=== PATIENT | female | born 1980 | race Caucasian/White ===

== ENCOUNTER 2018-03-24 10:21 | Emergency (ER) | payer OTHER ==
--- OUTSIDE RECORDS SUMMARY | 2018-03-24 10:28 | XMS REPORT ---
:1980 External Reference #:[id number] Author Organization Advanced project portfolio analyst [facility] Address [address] [place] [id number] Phone [phone] Care Team Providers Name Role Phone Ger Barton M.D. Care Team Information Manager Of Drilling Unavailable Payers Type Date Identification Numbers Payment Provider Subscriber Commercial Policy Number: [id number] [employer] Number: [id number] [address] PayID: [id number] [place] [address] Problems Description No Information Family History Date Family Member(s) Problem(s) Comments General Non Contributory Social History Type Date Description Comments Cigarette Use Never Smoked Cigarettes Allergies, Adverse Reactions, Alerts Date Description Reaction Status Severity Comments 12/15/2015 Seasonal Allergic asthma active Medications Medication Date Status Form Strength Qnty SIG Indications Ordering Provider Nasonex / Active Suspension 50mcg/Act 2x daily Unknown 0000 during allergy season (spring and fall) Montelukast / Active Tablets 10mg 1x daily Unknown Sodium 0000 spring through first of fall Align / Active Unknown 0000 Fluoxetine HCL / Active Capsules 20mg Take One Unknown 0000 Capsule By Mouth Every Day Percocet 12/29/ Hx Tablets 5-325mg 30tabs 1 by Ger Stein 01/26/ every 4 M.D. 2016 hours as needed pain Vital Signs Date Vital Result Comment 03/07/2018 BP Systolic 122 mmHg BP Diastolic 78 mmHg Height 65.5 inches 5'5.50" Weight 226.00 lb BMI (Body Mass Index) 37.0 kg/m2 02/22/2017 BP Systolic 118 mmHg BP Diastolic 82 mmHg Height 65.5 inches 5'5.50" Weight 213.38 lb BMI (Body Mass Index) 35.0 kg/m2 01/27/2016 BP Systolic 118 mmHg BP Diastolic 82 mmHg Height 65.5 inches 5'5.50" Weight 208.50 lb BMI (Body Mass Index) 34.2 kg/m2 12/18/2015 BP Systolic 108 mmHg BP Diastolic 72 mmHg Height 65.5 inches 5'5.50" Weight 205.00 lb BMI (Body Mass Index) 33.6 kg/m2 Results Test Date Test Result H/L Range Note Laboratory test 03/07/2018 Thinprep W/High <pending> finding Risk HPV Laboratory test 01/04/2016 Histology [place] [address] finding <SEE NOTE> CBC Without Diff 12/30/2015 WBC 8.4 10*3/uL (4.1-11.0) RBC 4.34 10*6/uL (4.00-5.40) HGB 13.5 g/dL (12.0-16.0) HCT 40.8 % (36.0-47.0) MCV 94.1 fL (80.0-95.0) MCH 31.1 pg (27.0-32.0) MCHC 33.0 g/dL (32.0-36.0) RDW 12.8 % (10.5-14.5) PLT 279 10*3/uL (150-450) MPV 9.6 fL (7.1-10.7) Laboratory test finding 12/30/2015 HCG, Qual. Serum NEGATIVE (Neg) [address] [place] [address] Surgical Pathology Report SPECIMEN(S) RECEIVED: A: Endometrial curettings CLINICAL DIAGNOSIS AND HISTORY: Pelvic and perineal pain. Excessive bleeding in premenopausal period. GROSS DESCRIPTION: Specimen received in formalin labeled "endometrial curettings" is a 2.7 x 1.9 x 0.4 cm aggregate of multiple irregular rodriguez-red soft tissue fragments and dark red clotted blood. The specimen is filtered through a biopsy bag and entirely submitted in one cassette. DIAGNOSIS: DESIGNATED ENDOMETRIAL CURETTINGS: Late secretory endometrium. Multiple levels examined. Processed at [facility], Histopathology, [address], [place], [address]. Reported at [facility] at [facility], [address] [place] [address], [address]. As applicable, positive and negative controls for all immunohistochemical and/or special stains were reviewed and considered appropriate. Reported: 01/05/2016 Electronically Signed Out By Fercho Blackwell M.D. [facility], P.CDanyel allen This report may include one or more immunohistochemical or in-situ hybridization results. Testing has been developed and the performance characteristics were determined by [facility] as required by CLIA '88 regulations. The tests may not have been approved for a given specific use by the [place] Food and Drug Administration, but the FDA has determined that such approval is not necessary for clinical use Procedures Date CPT Code Description Status 01/04/2016 56507 Laparoscopy Lysis Of Adhesions Completed 01/04/2016 78654 Hysteroscopy:Surgical With BX Of Completed Endometrium,Polypectomy W/Wo D&C Encounters Type Date Location Provider CPT E/M Dx Office Visit 02/22/2017 2:30p Main Office Ger Barton M.D. 93755 Z01.419 Office Visit 12/18/2015 2:10p [place] Ger Barton M.D. 76006 R10.2 N92.0 Plan of Care Future Appointment(s):03/13/2019 2:20 pm - Ger Barton M.D. at Main [facility]u7503/07/2018 - Ger Barton M.D.Z01.419 Encntr for hand packer exam (general) ( routine) w/o abn findingsComments:Risks, benefits & alternatives fully discussed with patient regarding treatment plan/options -(Test scheduled/ recommended and any medications prescribed). Patient fully understood and accepts. All questions answered to the best of my ability.Z12.12 Encounter for screening for malignant neoplasm of rectumComments:Importance of self breast exam. Explained and taught.
[2018-03-24 10:43] VITALS: BP 113/79
--- NOTE | 2018-03-24 11:30 | UC ---
Abdominal Pain Female HPI - HPI Summary HPI Summary: The patient is a 37-year-old female that has had intermittent abdominal problems since a visit to the [facility] in June 2017. Since that initial visit she has also been to [place]. She states that almost daily she has had diarrhea. She returned from the [facility] she did see her doctor and did have stool studies done. Apparently no pathogen was found. She has not been on any antibiotics recently. Patient currently chronic intermittent diarrhea she has had episodes of nausea and vomiting. She denies any fevers. Intermittently since June of last year she has had right lower quadrant abdominal pain that is brought on by eating. This pain can last minutes to hours. She has had no weight loss. She had her gallbladder removed years ago. - History of Current Complaint Chief Complaint: UCAbdominalPain Stated Complaint: ABD PAIN, VOMITTING Time Seen by Provider: 03/24/18 11:10 Hx Obtained From: Patient Hx Last Menstrual Period: 03/03/18 Onset/Duration: Gradual Onset, Lasting Weeks - months Timing: Intermittent Episodes Lasting: - hours Severity Initially: Moderate Severity Currently: Mild Pain Intensity: 3 Pain Scale Used: 0-10 Numeric Location: Discrete At: RLQ Character: Cramping Aggravating Factor(s): Food Associated Signs and Symptoms: Positive: Nausea, Vomiting, Diarrhea Allergies/Adverse Reactions: Allergies Allergy/AdvReac Type Severity Reaction Status Date / Time IV contrast dye Allergy Hives Uncoded 03/24/18 10:44 Home Medications: Home Medications FLUoxetine CAP* [PROzac CAP*] 10 mg PO DAILY 03/24/18 [History Confirmed ] PMH/Surg Hx/FS Hx/Imm Hx Previously Healthy: Yes - Surgical History Surgical History: Yes Surgery Procedure, Year, and Place: cholecystectomy 2004, laparoscopic exploratory surgery 01/04/16 [place] - Family History Known Family History: Positive: Hypertension, Other - no fhx crohns or uc - Social History Alcohol Use: Occasionally Substance Use Type: None Smoking Status (MU): Never Smoked Tobacco Review of Systems Constitutional: Negative Skin: Negative Eyes: Negative ENT: Negative Respiratory: Negative Cardiovascular: Negative Gastrointestinal: Abdominal Pain, Vomiting, Diarrhea, Nausea Genitourinary: Negative Motor: Negative Neurovascular: Negative Musculoskeletal: Negative Neurological: Negative Psychological: Negative Is Patient Immunocompromised?: No All Other Systems Reviewed And Are Negative: Yes Physical Exam Triage Information Reviewed: Yes Appearance: Well-Appearing, No Pain Distress, Well-Nourished Vital Signs: Initial Vital Signs Temp 99.1 F 03/24/18 10:34 Pulse 81 03/24/18 10:34 Resp 16 03/24/18 10:34 BP 113/79 03/24/18 10:34 Pulse Ox 100 03/24/18 10:34 Eyes: Positive: Conjunctiva Clear ENT: Positive: Hearing grossly normal, Pharynx normal, TMs normal, Uvula midline. Negative: Nasal congestion, Nasal drainage, Trismus, Muffled voice, Hoarse voice Neck exam: Normal Neck: Positive: Supple, Nontender, No Lymphadenopathy Respiratory: Positive: Lungs clear, Normal breath sounds, No respiratory distress, No accessory muscle use Cardiovascular: Positive: RRR, No Murmur, Pulses Normal Abdomen Description: Positive: Nontender, No Organomegaly. Negative: CVA Tenderness (R), CVA Tenderness (L), Distended, Guarding Bowel Sounds: Positive: Present Musculoskeletal: Positive: ROM Intact, No Edema Neurological: Positive: Alert Psychological Exam: Normal Skin Exam: Normal Abd Pain Female Course/Dx - Differential Dx/Diagnosis Provider Diagnoses: Chronic abd pain/vomiting/diarrhea Discharge - Sign-Out/Discharge Documenting (check all that apply): Patient Departure - Discharge Plan Condition: Stable Disposition: HOME Prescriptions: Ondansetron TAB* [Zofran Tab*] 4 mg PO Q6H PRN #10 tab PRN Reason: Nausea Patient Education Materials: Acute Nausea and Vomiting (ED), Chronic Diarrhea ( ED), Chronic Abdominal Pain (ED) Referrals: Raymundo Oneill MD [Medical Doctor] - As Soon As Possible Vincent Randle MD [Primary Care Provider] - 4 Days Additional Instructions: to er for new or worsening symptoms bring in diarrhea for studies I suggest GI referral - Billing Disposition and Condition Condition: STABLE Disposition: Home
[2018-03-25 14:45] LABS: EGFR Non-African American 82.8 (>60)
== END 2018-03-24 12:00 | disposition home or self-care (01) ==
LOC: UCEAST 10:21
DX: R10.31 Right lower quadrant pain (principal); R11.10 Vomiting, unspecified; R19.7 Diarrhea, unspecified; Z91.041 Radiographic dye allergy status
CPT/HCPCS: 36415; 80053; 81003; 84702; 99212; G0463

== ENCOUNTER 2019-06-16 14:02 | Emergency (ER) | payer OTHER ==
[2019-06-16 14:17] VITALS: BP 122/89
--- NOTE | 2019-06-16 14:29 | UC ---
Neck Pain HPI - HPI Summary HPI Summary: burning pain behind right ear for 3 days---no fevers, chill or URI, some fatigue no rashes--no illness exposures - History of Current Complaint Chief Complaint: UCUpperExtremity Stated Complaint: RIGHT SIDE NECK PAIN Time Seen by Provider: 06/16/19 14:15 Hx Obtained From: Patient Hx Last Menstrual Period: 06/02/19 ?: No Onset/Duration Of Injury/Symptoms: Days - 3 Mechanism Of Injury: No Known Trauma Timing: Constant Pain Intensity: 8 Pain Scale Used: 0-10 Numeric Character: Burning Aggravating Factors: Nothing Alleviating Factors: Nothing Associated Signs & Symptoms: Positive: Negative - Allergies/Home Medications Allergies/Adverse Reactions: Allergies Allergy/AdvReac Type Severity Reaction Status Date / Time IV contrast dye Allergy Hives Uncoded 06/16/19 14:17 Home Medications: Home Medications Fluoxetine HCl [Prozac] 10 mg PO DAILY 06/16/19 [History Confirmed 06/16/19] PMH/Surg Hx/FS Hx/Imm Hx Previously Healthy: No Psychological History: Anxiety - Surgical History Surgical History: Yes Surgery Procedure, Year, and Place: cholecystectomy 2004, laparoscopic exploratory surgery 01/04/16 [place] - Family History Known Family History: Positive: Hypertension, Other - no fhx crohns or uc - Social History Occupation: Employed Full-time Lives: With Family Alcohol Use: Occasionally Substance Use Type: None Smoking Status (MU): Never Smoked Tobacco Review of Systems All Other Systems Reviewed And Are Negative: Yes Constitutional: Positive: Fatigue Skin: Positive: Negative Eyes: Positive: Negative ENT: Positive: Negative, Other - pain behind right ear Respiratory: Positive: Negative Cardiovascular: Positive: Negative Gastrointestinal: Positive: Negative Genitourinary: Positive: Negative Motor: Positive: Negative Neurovascular: Positive: Negative Musculoskeletal: Positive: Negative Neurological: Positive: Negative Psychological: Positive: Negative Is Patient Immunocompromised?: No Physical Exam Triage Information Reviewed: Yes Appearance: Well-Appearing, No Pain Distress, Well-Nourished Vital Signs: Initial Vital Signs Temp 98.5 F 06/16/19 14:14 Pulse 96 06/16/19 14:14 Resp 18 06/16/19 14:14 BP 122/89 06/16/19 14:14 Pulse Ox 100 06/16/19 14:14 Vital Signs Reviewed: Yes Eye Exam: Normal Eyes: Positive: Conjunctiva Clear ENT Exam: Normal ENT: Positive: Normal ENT inspection, Hearing grossly normal, Pharynx normal, TMs normal, Uvula midline. Negative: Nasal congestion, Trismus, Muffled voice, Hoarse voice, Dental tenderness, Sinus tenderness Dental Exam: Normal Neck exam: Normal Neck: Positive: Supple, No Lymphadenopathy, Other: - superficial pain behind right ear Respiratory Exam: Normal Respiratory: Positive: Chest non-tender, No respiratory distress, No accessory muscle use Cardiovascular Exam: Normal Cardiovascular: Positive: Pulses Normal, Brisk Capillary Refill Musculoskeletal Exam: Normal Musculoskeletal: Positive: Strength Intact, ROM Intact, No Edema Neurological Exam: Normal Neurological: Positive: Alert, Muscle Tone Normal Psychological Exam: Normal Skin Exam: Normal Neck Pain Course/Dx - Course Course Of Treatment: ibuprofen, gabapentin.valtrex---follow with pcp this week - Differential Dx/Diagnosis Provider Diagnosis: Shingles Discharge ED - Sign-Out/Discharge Documenting (check all that apply): Patient Departure All imaging exams completed and their final reports reviewed: No Studies - Discharge Plan Condition: Stable Disposition: HOME Prescriptions: Gabapentin [Neurontin] 1 - 3 cap PO Q6H PRN #90 capsule PRN Reason: nerve pain Ibuprofen TAB* [Motrin TAB* 800 MG] 800 mg PO Q8H PRN #40 tab PRN Reason: pain ValACYclovir (*) [Valtrex 1 GM(*)] 1 gm PO TID 7 Days #21 tab Patient Education Materials: Shingles (ED) Referrals: Cory Head, [facility] [facility] [Primary Care Provider] - 5 Days - Billing Disposition and Condition Condition: STABLE Disposition: Home
== END 2019-06-16 14:47 | disposition home or self-care (01) ==
LOC: UCEAST 14:02
DX: B02.9 Zoster without complications (principal); F41.9 Anxiety disorder, unspecified; Z79.899 Other long term (current) drug therapy; Z91.041 Radiographic dye allergy status
CPT/HCPCS: 99212; G0463